=== PATIENT | female | born 1955 | race Caucasian/White ===

== ENCOUNTER 2016-12-25 13:01 | Outpatient (CLI) | payer OTHER ==
--- NOTE | 2016-12-25 15:56 | CT ---
ABDOMEN AND PELVIS CT SCAN WITHOUT IV CONTRAST HISTORY: A 61-year-old female with right lower quadrant pain. FINDINGS: The lung bases are clear. A very small sliding hiatal hernia. The liver, gallbladder, pancreas, sp delfino, and adrenal glands are unremarkable, as evaluated without IV contrast. Two small, nonobstruct ing left renal calculi. No evidence for acute obstruction. No CT evidence for acute appendiciti s. Degenerative disk disease of the lumbar spine. IMPRESSION: 1. Nonobstructing left renal calculi, small. 2. No evidence for acute genitourinary obstruction. 3. Very small sliding hiatal hernia. 4. No CT evidence for acute appendicitis or other significant acute process. POS: JUANA
== END 2016-12-25 13:02 | disposition home or self-care (01) ==
LOC: NAV CT 13:01
PROVIDERS: ATTEND Family Medicine
DX: R10.9 Unspecified abdominal pain (principal); R31.9 Hematuria, unspecified; N20.0 Calculus of kidney; K44.9 Diaphragmatic hernia without obstruction or gangrene
CPT/HCPCS: 74176